=== PATIENT | female | born 1995 | race Caucasian/White ===

== ENCOUNTER 2024-07-19 15:00 | Day surgery (SDC) | payer OTHER ==
[2024-07-19 17:14] LABS: HEMATOCRIT 36.5 % (36.0-45.00); HEMOGLOBIN 12.2 g/dL (12.0-15.00); MEAN CELL VOLUME 88.2 fL (80.00-100.00); MEAN CORPUSCULAR HEMOGLOBIN 29.5 pg (27.00-32.0); MEAN CORPUSCULAR HGB CONC 33.5 g/dl (32.0-36.0); PLATELET COUNT 244 K/uL (150-450); RED BLOOD COUNT 4.15 M/uL (4.00-6.00); RED CELL DISTRIBUTION WIDTH 12.9 % (11.5-14.5)
[2024-07-19 17:40] LABS: ALBUMIN 4.1 gm/dL (3.4-5.0); BILIRUBIN TOTAL 0.41 mg/dL (0.3-1.2); CALCIUM 9.5 mg/dL (8.5-10.1); CREATININE SERUM 0.78 mg/dL (0.55-1.02); GFR 88.59; GLOBULINA 3.3 G/DL (2.4-3.5); POTASSIUM 3.56 mEq/L (3.5-5.1); TOTAL PROTEIN 7.4 gm/dL (6.4-8.2)
[2024-07-19 17:42] LABS: INR 1.05; PARTIAL THROMBOPLASTIN TIME 27.8 SECONDS (22.0-34.0); PROTHROMBIN TIME 11.4 SECONDS (9.0-11.5)
[2024-07-19 19:16] LABS: RH POSITIVE
[2024-07-19] MEDS ORDERED: POVIDONE-IODINE 118 ML BOTT TOP ONE (20:45)
[2024-07-19] MEDS ORDERED: MORPHINE SULFATE 4 MG/ML VIAL IV PRN (21:15)
[2024-07-19] MEDS ORDERED: PROMETHAZINE HCL 50 MG/ML AMPUL IM ONE (21:15)
== END 2024-07-20 02:05 | disposition home or self-care (01) ==
LOC: CIR.AMB 15:00
PROVIDERS: ATTEND Obstetrics & Gynecology
DX: O03.4 Incomplete spontaneous abortion without complication (principal)

== ENCOUNTER 2024-11-08 21:34 | Emergency (ER) | payer OTHER ==
[~2024-11-08] VITALS: Ht 160 cm; Wt 58.1 kg
[2024-11-08 21:49] VITALS: BP 120/72; O2SAT 99
[2024-11-08] MEDS ORDERED: PRENATA CHEWAB1 EACH PO (21:49)
[2024-11-08] MEDS ORDERED: 0.9 % SODIUM CHLORIDE 1,000 ML IV STA (23:20)
[2024-11-09 00:36] LABS: HEMATOCRIT 36.2 % (36.0-45.00); HEMOGLOBIN 12.1 g/dL (12.0-15.00); MEAN CELL VOLUME 86.9 fL (80.00-100.00); MEAN CORPUSCULAR HGB CONC 33.4 g/dl (32.0-36.0); PLATELET COUNT 219 K/uL (150-450); RED BLOOD COUNT 4.16 M/uL (4.00-6.00); RED CELL DISTRIBUTION WIDTH 13.5 % (11.5-14.5)
[2024-11-09 00:53] LABS: INR 1.04; PARTIAL THROMBOPLASTIN TIME 27.1 SECONDS (22.0-34.0); PROTHROMBIN TIME 11.3 SECONDS (9.0-11.5)
[2024-11-09 01:12] LABS: ALBUMIN 3.9 gm/dL (3.4-5.0); BILIRUBIN TOTAL 0.4 mg/dL (0.3-1.2); CALCIUM 8.9 mg/dL (8.5-10.1); CREATININE SERUM 0.98 mg/dL (0.55-1.02); GFR 68.08; GLOBULINA 3.2 G/DL (2.4-3.5); POTASSIUM 3.9 mEq/L (3.5-5.1); TOTAL PROTEIN 7.1 gm/dL (6.4-8.2)
== END 2024-11-09 03:42 ==
LOC: ER 21:35
DX: O20.0 Threatened abortion (principal); Z3A.10 10 weeks gestation of pregnancy

== ENCOUNTER 2025-05-28 09:18 | Outpatient (CLI) | payer OTHER ==
[~2025-05-28 09:18] MED LIST: PRENATA CHEWAB1 EACH PO
== END 2025-05-28 10:25 | disposition home or self-care (01) ==
LOC: NST 09:18
PROVIDERS: ATTEND Obstetrics & Gynecology Maternal & Fetal Medicine
DX: Z34.83 Encounter for supervision of other normal pregnancy, third trimester (principal)

== ENCOUNTER 2025-06-04 11:04 | Inpatient (IN) | payer OTHER ==
[~2025-06-04] VITALS: Ht 160 cm; Wt 76.7 kg
[2025-06-05 13:54] VITALS: BP 103/63
[2025-06-05] MEDS ORDERED: CLEOCIN HCL300 MG PO (14:38)
[2025-06-05] MEDS ORDERED: RINGERS SOLUTION,LACTATED 1,000 ML IV SCH (14:45)
[2025-06-05 15:15] LABS: BASO % 0.2 % (0.1-1.2); EOS # 0.04 (0.04-0.54); EOS % 0.4 % (0.7-7.0); LYMPH # 1.33 (1.18-3.74); LYMPH % 14.9 % (19.3-53.1); MEAN PLATELET VOLUME 11.90 fl (9.4-12.4); MONO # 0.57 (0.24-0.82); MONO % 6.4 % (4.7-12.5); NEUT # 6.92 (1.56-6.13); NEUT % 77.5 % (34.0-71.1); RED CELL DISTRIBUTION WIDTH 13.7 % (11.6-14.4)
[2025-06-05 15:32] VITALS: BP 114/69
[2025-06-05 15:33] LABS: INR < 0.93
[2025-06-05 15:58] LABS: ALT/SGPT 24.0 U/L (12-78); AST/SGOT 31.0 U/L (15-37); BILIRUBIN TOTAL 0.36 mg/dL (0.3-1.2); BUN CREA RATIO 16.0 (7.0-25.0); CREATININE SERUM 0.88 mg/dL (0.55-1.02); GFR 76.51; GLOBULINA 3.3 G/DL (2.4-3.5); GLUCOSE FASTING 94.0 mg/dL (65-100); OSMOLALITY SERUM 274.0 MOSM/KG (275-295)
[2025-06-05] MEDS ORDERED: MISOPROSTOL 25 MCG TABLET ONE (16:24)
[2025-06-05] MEDS ORDERED: MISOPROSTOL 25 MCG TABLET VAG ONE (16:45)
[2025-06-05] MEDS ORDERED: CLINDAMYCIN HCL 300 MG CAPSULE PO SCH (17:00)
[2025-06-05 19:36] VITALS: BP 107/55
[2025-06-05 23:25] VITALS: BP 129/70
[2025-06-06] VITALS (8 sets, daily range): BP systolic 112–124; BP diastolic 50–69
[2025-06-06] MEDS ORDERED: OXYTOCIN 500 ML IV ONE (07:15)
[2025-06-06] MEDS ORDERED: ERYTHROMYCIN BASE OPHT 1GM EACH TUBE OP ONE (10:43)
[2025-06-06] MEDS ORDERED: OXYTOCIN 20 UNITS/1000ML RL PIGGYBAG IV ONE (10:43)
[2025-06-06] MEDS ORDERED: LIDOCAINE HCL 1% 10ML VIAL ONE (10:44)
[2025-06-06] MEDS ORDERED: CHLORHEXIDINE GLUCONATE 120 ML BOTTLE TOP ONE ×2 (10:44→11:45)
[2025-06-06] MEDS ORDERED: OXYTOCIN 1,000 ML IV SCH (11:45)
[2025-06-07 03:19] VITALS: BP 100/60
[2025-06-07 07:32] LABS: BASO % 0.2 % (0.1-1.2); EOS # 0.03 (0.04-0.54); EOS % 0.2 % (0.7-7.0); LYMPH # 1.79 (1.18-3.74); LYMPH % 14.8 % (19.3-53.1); MEAN PLATELET VOLUME 12.00 fl (9.4-12.4); MONO # 0.84 (0.24-0.82); MONO % 6.9 % (4.7-12.5); NEUT # 9.37 (1.56-6.13); NEUT % 77.3 % (34.0-71.1); RED CELL DISTRIBUTION WIDTH 13.9 % (11.6-14.4)
[2025-06-07] MEDS ORDERED: IRON FUM,PS/FOLIC/BCOMP,C NO.9 1 CAP CAPSULE PO SCH (09:00)
[2025-06-07 09:22] VITALS: BP 114/66
[2025-06-07 16:59] VITALS: BP 102/67
[2025-06-08 02:58] VITALS: BP 103/63
[2025-06-08 08:00] VITALS: BP 108/67
== END 2025-06-08 14:10 | disposition home or self-care (01) | DRG 807 ==
LOC: OB/GYN 11:04 → LDR 06-05 13:33 → OB/GYN 06-06 12:21
PROVIDERS: ADMIT Obstetrics & Gynecology; ATTEND Obstetrics & Gynecology
PROC: 3E0P7VZ Introduction of Hormone into Female Reproductive, Via Natural or Artificial Opening (ICD-10-PCS; 2025-06-05)
PROC: 4A1HXCZ Monitoring of Products of Conception, Cardiac Rate, External Approach (ICD-10-PCS; 2025-06-05)
PROC: 10E0XZZ Delivery of Products of Conception, External Approach (ICD-10-PCS; principal; 2025-06-06)
PROC: 0UQG7ZZ Repair Vagina, Via Natural or Artificial Opening (ICD-10-PCS; 2025-06-06)
PROC: 0W8NXZZ Division of Female Perineum, External Approach (ICD-10-PCS; 2025-06-06)
PROC: 3E033VJ Introduction of Other Hormone into Peripheral Vein, Percutaneous Approach (ICD-10-PCS; 2025-06-06)
DX: O71.4 Obstetric high vaginal laceration alone (principal); Z37.0 Single live birth; Z3A.40 40 weeks gestation of pregnancy